=== PATIENT | female | born 1960 | race Hispanic/Latino ===

== ENCOUNTER → 2024-08-08 | Day surgery (SDC) | payer OTHER ==
[~2024-08-08] MED LIST: AMLODIPINE BESY10 MG PO; GLIPIZIDE ER5 MG PO; LEVOTHYROXINE50 MCG PO; LIDOCAINE HCL 2% LOCAL INJ 5 ML SDV VIAL INJ ONE; LIPITOR10 MG PO; LOSARTAN POTASS25 MG PO; MAGNESIUM200 MG PO; METFORMIN HCL500 MG PO; MIDAZOLAM HCL 2 MG/2 ML VIAL ONE; OMEGA 3 1,0001 EACH PO; OZEMPIC0.25 MG/02 SC; PROPOFOL IV EMULSION 10 MG/ML 20 ML VIAL ONE; VITAMIN B121000 MCG PO; VITAMIN B650 M1 PO; VITAMIN D3 COM1 EACH PO; ZINC CHELATED50 M2 PO
[2024-08-08] MEDS: LACTATED RINGER'S 1,000 ML ONE (16:06)
[2024-08-08 17:11] VITALS: TEMP 97.1
[2024-08-08 17:40] VITALS: BP 144/69; PULSE 71; RESP 15; O2SAT 100
== END | disposition home or self-care (01) ==
LOC: OR 14:53
PROVIDERS: ATTEND Internal Medicine Gastroenterology
DX: Z12.11 Encounter for screening for malignant neoplasm of colon (principal); D12.2 Benign neoplasm of ascending colon; D12.3 Benign neoplasm of transverse colon; D12.8 Benign neoplasm of rectum; K64.8 Other hemorrhoids; K57.30 Diverticulosis of large intestine without perforation or abscess without bleeding; E11.9 Type 2 diabetes mellitus without complications; I10 Essential (primary) hypertension; E78.5 Hyperlipidemia, unspecified; E03.9 Hypothyroidism, unspecified; Z01.810 Encounter for preprocedural cardiovascular examination; Z79.84 Long term (current) use of oral hypoglycemic drugs; Z79.85 Long-term (current) use of injectable non-insulin antidiabetic drugs; Z79.899 Other long term (current) drug therapy; Z86.73 Personal history of transient ischemic attack (TIA), and cerebral infarction without residual deficits
CPT/HCPCS: 36415; 45384; 45385; 82948; 93005; J2003; J2250; J2704; J7121